=== PATIENT | male | born 1980 | race Two or more races ===

== ENCOUNTER 2018-10-08 23:50 | Emergency (ER) | payer SELFPAY ==
[~2018-10-08] VITALS: Ht 177.8 cm; Wt 95.0 kg
[2018-10-09] MEDS ORDERED: SODIUM CHLORIDE 0.9% 1,000 ML IV ONE (00:25)
[2018-10-09] MEDS ORDERED: KETOROLAC 30MG/ML VIAL IV STA (00:25)
[2018-10-09] MEDS ORDERED: ONDANSETRON HCL 4MG/2ML INJ IV STA (00:25)
[2018-10-09] MEDS ORDERED: MAGNESIUM/ALUMINUM HYDROXIDE/SIMETHICONE 30ML UDC PO ONE (00:30)
[2018-10-09] MEDS ORDERED: FAMOTIDINE 20MG/2ML VIAL IV ONE (00:30)
[2018-10-09 00:57] LABS: BASOPHILS % 1.2 % (0.0-2.0); EOSINOPHILS % 4.3 % (0.0-5.0); HEMATOCRIT. 42.4 % (42.0-52.0); HEMOGLOBIN. 14.3 g/dL (14.0-18.0); MEAN CORPUSCULAR HEMOGLOBIN 29.8 pg (28.0-32.0); MEAN CORPUSCULAR VOLUME 88.2 fL (80.0-94.0); MEAN PLATELET VOLUME 8.7 fl (7.4-10.4); MONOCYTES % 10.3 % (2.0-8.0); NEUTROPHILS % 45.2 % (40.0-76.0); PLATELET 228 x1000/uL (130-400); RED BLOOD CELL COUNT 4.81 mill/uL (4.7-6.1); RED CELL DISTRIBUTION WIDTH 13.6 % (11.6-14.6)
[2018-10-09 01:03] LABS: CHLORIDE 106 mEq/L (98-107)
[2018-10-09 01:09] LABS: D-DIMER < 0.19 mg/L FEU (<0.50); PARTIAL THROMBOPLASTIN TIME 28.7 sec (23.4-31.0); PROTHROMBIN TIME 10.4 sec (9.1-11.1)
[2018-10-09] MEDS ORDERED: LORAZEPAM 2MG/ML CPJ IV ONE (02:45)
[2018-10-09] MEDS ORDERED: MORPHINE SULFATE 4 MG/ML CPJ (NOT FOR IM USE) IV ONE ×2 (02:45→04:15)
[2018-10-09 05:21] LABS: CREATINE KINASE 182 IU/L (39-308)
[2018-10-09 06:02] VITALS: BP 123/70
[2018-10-09] MEDS ORDERED: IOHEXOL-350 100 ML BOTTLE ONE (07:08)
== END 2018-10-09 06:42 | disposition home or self-care (01) ==
LOC: ER 23:50
DX: R07.89 Other chest pain (principal); M62.838 Other muscle spasm; Z98.890 Other specified postprocedural states
CPT/HCPCS: 36415; 71045; 71275; 80053; 82550; 83690; 83880; 84484; 85025; 85379; 85610; 85730; 93005; 96374; 96375; 96376; 99284; J1885; J2060; J2270; J2405; J3490; J7030; Q9967